=== PATIENT | male | born 1980 | race Caucasian/White ===

== ENCOUNTER 2016-06-21 04:43 | Emergency (ER) | payer SELFPAY ==
[~2016-06-21] VITALS: Ht 175.3 cm; Wt 74.8 kg
[2016-06-21] MEDS ORDERED: LORazepam 2MG/ML-1ML VIAL IM ONE (05:15)
[2016-06-21] MEDS ORDERED: diphenhdrAMINE HCL 50 MG/1 ML VL IV ONE (05:15)
[2016-06-21] MEDS ORDERED: HALOPERIDOL LACTATE 5 MG/ML INJ VIAL IM ONE (05:15)
[2016-06-21 06:11] LABS: Basophils # (auto) 0 uL; Basophils % (auto) 0.5 % (0.0-2.0); Eosinophils # (auto) 0.2 uL; Eosinophils % (auto) 2.2 % (0.0-7.0); Hematocrit 48.3 % (41.0-53.0); Hemoglobin 15.7 g/dL (13.5-17.5); Lymphocytes # (auto) 2.7 uL; Lymphocytes % (auto) 28.4 % (10.0-50.0); Mean Corpuscular Hemoglobin 31.2 pg (28.0-32.0); Mean Corpuscular Hgb Conc. 32.5 g/dL (32.0-36.0); Mean Corpuscular Volume 96.1 fL (80.0-100.0); Mean Platelet Volume 8.9 fL (7.4-10.4); Monocytes # (auto) 0.6 uL; Monocytes % (auto) 6.4 % (0.0-12.0); Neutrophils # (auto) 5.8 uL; Neutrophils % (auto) 62.5 % (37.0-80.0); Platelet Count (auto) 389 10^3/uL (140-450); Red Cell Distribution Width 13.5 % (11.6-16.0); White Blood Cell 9.4 10^3/uL (4.4-10.8)
[2016-06-21 06:45] LABS: Salicylate 15.2 mg/dL (2.8-20.0)
[2016-06-21 06:46] LABS: Albumin 4.3 g/dL (3.4-5.0); BUN/Creatinine Ratio 5.9; Calcium 8.6 mg/dL (8.5-10.1); Potassium 3.6 mmol/L (3.5-5.1)
[2016-06-21 06:48] LABS: Bilirubin, Total 0.3 mg/dL (0.2-1.0); Total Protein 8.4 g/dL (6.4-8.2)
[2016-06-21 07:00] LABS: Acetaminophen < 2.0 ug/mL (10-30)
[2016-06-21] MEDS ORDERED: SODIUM CHLORIDE 0.9% 1,000 ML IVB ONE (07:45)
[2016-06-21] MEDS ORDERED: THIAMINE INJ 100 MG, MULTIPLE VITAMIN 10 ML, FOLIC ACID 1 MG, MAGNESIUM SULF SDV 50% 8 ... IV SCH ×5 (12:00)
[2016-06-21 14:58] VITALS: BP 145/76
== END 2016-06-21 16:16 | disposition home or self-care (01) ==
LOC: ER 04:48
DX: T39.012A Poisoning by aspirin, intentional self-harm, initial encounter (principal); F32.3 Major depressive disorder, single episode, severe with psychotic features; F10.10 Alcohol abuse, uncomplicated; R45.851 Suicidal ideations; Y93.89 Activity, other specified; Y99.8 Other external cause status; Y92.89 Other specified places as the place of occurrence of the external cause
CPT/HCPCS: 36415; 71010; 80053; 80307; 80320; 80329; 83735; 85025; 93005; 94761; 96361; 96365; 96372; 96375; 99285; J1200; J1630; J2060; J3411; J3475; J7030